=== PATIENT | female | born 1960 | race Caucasian/White ===

== ENCOUNTER 2022-08-19 15:02 | Outpatient (CLI) | payer BC | END 2022-08-19 15:03 | disposition home or self-care (01) | LOC: CSHMAMMO 15:02 | PROVIDERS: ATTEND Obstetrics & Gynecology | DX: Z12.31 Encounter for screening mammogram for malignant neoplasm of breast (principal) | CPT/HCPCS: 77063; 77067 ==

== ENCOUNTER 2023-03-10 14:10 | Outpatient (CLI) | payer BC, OTHER | END 2023-03-10 14:11 | disposition home or self-care (01) | LOC: CSHCP 14:10 | PROVIDERS: ATTEND Internal Medicine Critical Care Medicine | DX: R05.3 Chronic cough (principal) | CPT/HCPCS: 94060; 94726; 94729; 94760 ==

== ENCOUNTER 2025-01-08 12:13 | Outpatient (CLI) | payer BC | END 2025-01-08 12:14 | disposition home or self-care (01) | LOC: CSHULT 12:13 | PROVIDERS: ATTEND Family Medicine | DX: R09.81 Nasal congestion (principal); E04.1 Nontoxic single thyroid nodule; J34.2 Deviated nasal septum; J34.89 Other specified disorders of nose and nasal sinuses | CPT/HCPCS: 76536 ==